=== PATIENT | female | born 1945 | race Hispanic/Latino ===

== ENCOUNTER → 2017-06-07 | Outpatient (CLI) | payer MEDICARE | END | disposition home or self-care (01) | LOC: SHCH 10:17 | PROVIDERS: ATTEND Internal Medicine Cardiovascular Disease | DX: I35.8 Other nonrheumatic aortic valve disorders (principal); I25.2 Old myocardial infarction; I10 Essential (primary) hypertension | CPT/HCPCS: 93306 ==

== ENCOUNTER → 2018-09-29 | Outpatient (CLI) | payer MEDICARE | END | disposition home or self-care (01) | LOC: SHCH 10:53 | PROVIDERS: ATTEND Internal Medicine Cardiovascular Disease | DX: I07.1 Rheumatic tricuspid insufficiency (principal); I27.20 Pulmonary hypertension, unspecified; I31.3 Pericardial effusion (noninflammatory); I25.10 Atherosclerotic heart disease of native coronary artery without angina pectoris | CPT/HCPCS: 93306 ==

== ENCOUNTER → 2018-10-04 | Outpatient (CLI) | payer MEDICARE | END | disposition home or self-care (01) | LOC: SHCH 10:30 | PROVIDERS: ATTEND Internal Medicine Cardiovascular Disease | DX: I65.23 Occlusion and stenosis of bilateral carotid arteries (principal) | CPT/HCPCS: 93880 ==

== ENCOUNTER → 2018-10-06 | Outpatient (CLI) | payer MEDICARE ==
[~2018-10-06] VITALS: Ht 152.4 cm; Wt 73.0 kg
[~2018-10-06] MED LIST: REGADENOSON 0.4 MG/5 ML PF SYG IVP SCH
== END | disposition home or self-care (01) ==
LOC: SHCH 08:16
PROVIDERS: ATTEND Internal Medicine Cardiovascular Disease
DX: I25.10 Atherosclerotic heart disease of native coronary artery without angina pectoris (principal)
CPT/HCPCS: 78452; 93017; 96374; A9500 ×2; J2785

== ENCOUNTER 2018-11-15 08:59 | Day surgery (SDC) | payer MEDICARE ==
[2018-11-14 14:00] VITALS: BP 189/71
[2018-11-14 14:40] LABS: APPEARANCE,URINE Clear (CLEAR); BASOPHILS % (AUTO) 0.3 % (0.0-5.0); BILIRUBIN,URINE Negative (NEGATIVE); COLOR,URINE Dark Yellow (YELLOW); EOSINOPHILS % (AUTO) 2.7 % (0.0-8.0); GLUCOSE, URINE (UA) Negative (NEGATIVE); HEMATOCRIT 35.5 % (36-48); KETONES,URINE Negative (NEGATIVE); LEUKOCYTE ESTERASE ,URINE Small (NEGATIVE); LYMPHOCYTES % (AUTO) 42.2 % (21.0-51.0); MEAN CORPUSCULAR HEMOGLOBIN 30.8 pg (27.0-33.0); MEAN CORPUSCULAR HGB CONC 33.6 g/dL (32.0-36.0); MEAN CORPUSCULAR VOLUME 91.5 fL (79-99); MONOCYTES % (AUTO) 11.3 % (3.0-13.0); NEUTROPHILS % (AUTO) 43.5 % (40.0-77.0); NITRATE,URINE Negative (NEGATIVE); OCCULT BLOOD,URINE Negative (NEGATIVE); PH,URINE 5.5 (5.0-8.0); PLATELET COUNT (AUTO) 165 K/uL (130-400); PROTEIN,URINE Negative (NEGATIVE); RED BLOOD CELL COUNT(AUTO) 3.88 MIL/uL (4.00-5.50); RED CELL DISTRIBUTION WIDTH 13.9 % (11.0-15.5); UROBILINOGEN,URINE 0.2 mg/dL (0.2-1.0); WHITE BLOOD COUNT (AUTO) 4.1 K/uL (4.8-10.8)
[2018-11-14 14:52] LABS: POTASSIUM 4.3 mmol/L (3.5-5.1)
[2018-11-14 14:55] LABS: INR 0.93 (0.85-1.15); PARTIAL THROMBOPLASTIN TIME 26.1 SEC (26.3-35.5); PROTHROMBIN TIME 9.8 SEC (9.6-11.6)
[2018-11-14 15:07] LABS: BACTERIA,URINE Few /HPF (None Seen)
[2018-11-15] VITALS (9 sets, daily range): BP systolic 121–164; BP diastolic 47–64
[~2018-11-15] VITALS: Ht 154.9 cm; Wt 74.1 kg
[~2018-11-15 08:59] MED LIST changes: +ASPI-1181 PO; +CALC600T12 PO; +LEVO88TA4 PO; +LOSA100T58 PO; +MULT-264 PO; -REGADENOSON 0.4 MG/5 ML PF SYG IVP SCH; +SODIUM CHLORIDE 0.9% 1000ML 1,000 ML IV SCH
[2018-11-15] MEDS ORDERED: LOSA1TAB42 PO (09:46)
[2018-11-15] MEDS ORDERED: AMLO10TA7 PO (09:46)
[2018-11-15] MEDS ORDERED: IOHEXOL-350 50ML VIAL IV ONE (12:23)
[2018-11-15] MEDS ORDERED: LIDOCAINE HCL 2% 20ML ONE (12:23)
[2018-11-15] MEDS ORDERED: NITROGLYCERIN 5 MG/ML 10 ML VIAL IV ONE (12:23)
[2018-11-15] MEDS ORDERED: IOHEXOL 350 MG/ML 100ML INFUS..BTL IV ONE (12:23)
[2018-11-15] MEDS ORDERED: HEPARIN SODIUM 1000UNIT/ML 10ML VIAL ONE (12:23)
[2018-11-15] MEDS ORDERED: SODIUM BICARB 50MEQ 50ML VIAL ONE (12:23)
[2018-11-15] MEDS ORDERED: MEPERIDINE-PF 25 MG/ML SYG ONE ×2 (12:45→12:53)
[2018-11-15] MEDS ORDERED: MIDAZOLAM HCL 1 MG/ML 2ML VIAL ONE ×2 (12:45→12:53)
[2018-11-15] MEDS ORDERED: SODIUM CHLORIDE 0.9% 1000ML 1,000 ML IV SCH (13:14)
[2018-11-15] MEDS ORDERED: ACETAMINOPHEN-CODEINE 300/30MG TAB PO PRN (13:15)
--- NOTE | 2018-11-15 13:40 | NUR ---
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
--- NOTE | 2018-11-15 17:11 | NUR ---
dc dc instrucctions given to pt daughter , instructed to f/u with dr omer avendano. to continue home meds, no distress noted. right groin perclose-dressing dry and intact,
--- NOTE | 2018-11-15 17:30 | NUR ---
dc pt dc home via wc, no distress noted. accompanied by daughter
== END 2018-11-15 17:30 | disposition home or self-care (01) ==
LOC: DAH 08:59 → SUH 08:59
PROVIDERS: ATTEND Internal Medicine Cardiovascular Disease
DX: I25.118 Atherosclerotic heart disease of native coronary artery with other forms of angina pectoris (principal); E03.9 Hypothyroidism, unspecified; I10 Essential (primary) hypertension; M32.9 Systemic lupus erythematosus, unspecified; Z79.82 Long term (current) use of aspirin; Z79.899 Other long term (current) drug therapy; Z82.49 Family history of ischemic heart disease and other diseases of the circulatory system; Z83.3 Family history of diabetes mellitus
CPT/HCPCS: 36415; 71045; 80048; 81001; 85025; 85610; 85730; 93005; 93458; A4215; A4216; A4221; A4222; A4223 ×3; A4606; C1760; C1894; J1644; J2175 ×2; J2250 ×2; J3490 ×3; J7030; Q9965; Q9967 ×2; 99156; 99157

== ENCOUNTER → 2020-02-13 | Outpatient (CLI) | payer MEDICARE ==
[~2020-02-13] MED LIST changes: +AMLO-258 PO; -ASPI-1181 PO; +ASPI-1443 PO; -CALC600T12 PO; +CALC600T15 PO; -LOSA100T58 PO; +LOSA1TAB42 PO; -SODIUM CHLORIDE 0.9% 1000ML 1,000 ML IV SCH
== END | disposition home or self-care (01) ==
LOC: SHCH 10:41
PROVIDERS: ATTEND Internal Medicine Cardiovascular Disease
DX: I51.7 Cardiomegaly (principal); R01.1 Cardiac murmur, unspecified
CPT/HCPCS: 93306; 93356

== ENCOUNTER → 2020-02-26 | Outpatient (CLI) | payer OTHER | END | disposition home or self-care (01) | LOC: OIH 14:35 | PROVIDERS: ATTEND Internal Medicine Cardiovascular Disease | DX: Z13.6 Encounter for screening for cardiovascular disorders (principal) | CPT/HCPCS: 75571 ==

== ENCOUNTER 2020-05-22 23:32 | Emergency (ER) | payer MEDICARE, OTHER ==
[~2020-05-22 23:32] MED LIST changes: +CALC-1125 PO; -CALC600T15 PO
[2020-05-22 23:57] LABS: BASOPHILS % (AUTO) 0.1 % (0.0-5.0); EOSINOPHILS % (AUTO) 3.7 % (0.0-8.0); HEMATOCRIT 35.1 % (36-48); LYMPHOCYTES % (AUTO) 22.4 % (21.0-51.0); MEAN CORPUSCULAR HEMOGLOBIN 28.9 pg (27.0-33.0); MEAN CORPUSCULAR HGB CONC 31.3 g/dL (32.0-36.0); MEAN CORPUSCULAR VOLUME 92.4 fL (79-99); MONOCYTES % (AUTO) 9.3 % (3.0-13.0); NEUTROPHILS % (AUTO) 64.2 % (40.0-77.0); PLATELET COUNT (AUTO) 200 K/uL (130-400); RED CELL DISTRIBUTION WIDTH 14.4 % (11.0-15.5); WHITE BLOOD COUNT (AUTO) 9.4 K/uL (4.8-10.8)
[2020-05-22] MEDS ORDERED: METHYLPREDNISOLONE SOD SUCC 40MG/ML 1ML ONE (23:59)
[2020-05-22] MEDS ORDERED: DiphenhydrAMINE HCL 50 MG/ML VIAL ONE (23:59)
[2020-05-22] MEDS ORDERED: FAMOTIDINE/PF 20 MG/2 ML VIAL IV ONE (23:59)
[2020-05-23 00:02] LABS: CREATININE 1.1 mg/dL (0.5-1.5); POTASSIUM 4.5 mmol/L (3.5-5.1)
[2020-05-23 00:07] LABS: ALBUMIN 3.6 g/dL (3.5-5.0); BILIRUBIN,TOTAL 0.3 mg/dL (0.2-1.0)
== END 2020-05-23 01:41 | disposition home or self-care (01) ==
LOC: EDH 23:32
DX: T63.441A Toxic effect of venom of bees, accidental (unintentional), initial encounter (principal); I10 Essential (primary) hypertension; R60.0 Localized edema; Y92.098 Other place in other non-institutional residence as the place of occurrence of the external cause
CPT/HCPCS: 36415; 80053; 84145; 85025; 93971; 96374; 96375; 99284; J1200; J2920; J3490

== ENCOUNTER → 2022-06-30 | Outpatient (CLI) | payer MEDICARE | END | disposition home or self-care (01) | LOC: SHCH 08:59 | PROVIDERS: ATTEND Internal Medicine Cardiovascular Disease | DX: I08.0 Rheumatic disorders of both mitral and aortic valves (principal); I10 Essential (primary) hypertension; E78.5 Hyperlipidemia, unspecified; I27.20 Pulmonary hypertension, unspecified | CPT/HCPCS: 93306 ==

== ENCOUNTER → 2022-07-14 | Outpatient (CLI) | payer OTHER | END | disposition home or self-care (01) | LOC: RAH 13:24 | PROVIDERS: ATTEND Internal Medicine Cardiovascular Disease | DX: Z13.6 Encounter for screening for cardiovascular disorders (principal); I51.5 Myocardial degeneration | CPT/HCPCS: 75571 ==

== ENCOUNTER → 2023-07-19 | Outpatient (CLI) | payer MEDICARE ==
[2023-07-19] MEDS: REGADENOSON 0.4 MG/5 ML PF SYG IVP ONE (12:04)
== END | disposition home or self-care (01) ==
LOC: SHCH 09:04
PROVIDERS: ATTEND Internal Medicine Cardiovascular Disease
DX: R07.9 Chest pain, unspecified (principal)
CPT/HCPCS: 78452; 96374; 93017; J2785; A9500 ×2

== ENCOUNTER → 2023-07-26 | Outpatient (CLI) | payer MEDICARE ==
[2023-07-26 16:27] LABS: CREATININE 1.1 mg/dL (0.5-1.0); POTASSIUM 4.8 mmol/L (3.5-5.1)
== END | disposition home or self-care (01) ==
LOC: LAB 13:10
PROVIDERS: ATTEND Physician Assistant
DX: I25.10 Atherosclerotic heart disease of native coronary artery without angina pectoris (principal)
CPT/HCPCS: 36415; 80048

== ENCOUNTER → 2023-07-29 | Outpatient (CLI) | payer MEDICARE, BC ==
[~2023-07-29] MED LIST changes: +IOHEXOL 350 MG/ML 100ML INFUS..BTL IV ONE; +METOPROLOL TARTRATE 1 MG/ML 5ML VIAL IV ONE
== END | disposition home or self-care (01) ==
LOC: RAH 08:09
PROVIDERS: ATTEND Internal Medicine Cardiovascular Disease
DX: R07.9 Chest pain, unspecified (principal)
CPT/HCPCS: 75574; J3490 ×2; Q9967

== ENCOUNTER 2023-09-21 07:07 | Day surgery (SDC) | payer MEDICARE ==
[2023-09-19 10:34] LABS: BASOPHILS # (AUTO) 0.01 K/uL (0.00-0.20); BASOPHILS % (AUTO) 0.2 % (0.0-5.0); EOSINOPHILS % (AUTO) 3.7 % (0.0-8.0); HEMATOCRIT 37.2 % (36-48); IMMATURE GRANULOCYTE ABSOLUTE 0.02 K/uL (0-1); LYMPHOCYTES # (AUTO) 2.1 K/uL (1.0-4.8); LYMPHOCYTES % (AUTO) 39.3 % (21.0-51.0); MEAN CORPUSCULAR HEMOGLOBIN 29.8 pg (27.0-33.0); MEAN CORPUSCULAR HGB CONC 31.2 g/dL (32.0-36.0); MEAN CORPUSCULAR VOLUME 95.6 fL (79-99); MONOCYTES # (AUTO) 0.6 K/uL (0.1-1.0); MONOCYTES % (AUTO) 11.1 % (3.0-13.0); NEUTROPHILS # (AUTO) 2.5 K/uL (1.8-7.7); NEUTROPHILS % (AUTO) 45.3 % (40.0-77.0); PLATELET COUNT (AUTO) 199 K/uL (130-400); RED BLOOD CELL COUNT(AUTO) 3.89 MIL/uL (4.00-5.50); RED CELL DISTRIBUTION WIDTH 14.5 % (11.0-15.5); WHITE BLOOD COUNT (AUTO) 5.4 K/uL (4.8-10.8)
[2023-09-19 10:39] LABS: APPEARANCE,URINE CLEAR (CLEAR); BILIRUBIN,URINE NEGATIVE (NEGATIVE); COLOR,URINE LIGHT-YELLOW (YELLOW); GLUCOSE, URINE (UA) NEGATIVE (NEGATIVE); KETONES,URINE NEGATIVE (NEGATIVE); LEUKOCYTE ESTERASE ,URINE NEGATIVE Leu/uL (NEGATIVE); NITRATE,URINE NEGATIVE (NEGATIVE); OCCULT BLOOD,URINE NEGATIVE (NEGATIVE); PROTEIN,URINE NEGATIVE (NEGATIVE); UROBILINOGEN,URINE 0.2 mg/dL (0.2-1.0)
[2023-09-19 10:41] LABS: POTASSIUM 5.7 mmol/L (3.5-5.1)
[2023-09-19 10:42] LABS: ADD UA MICROSCOPIC NO
[2023-09-19 10:45] LABS: INR 1.01 (0.85-1.15); PROTHROMBIN TIME 10.9 SEC (9.6-11.6)
[2023-09-19 10:46] LABS: PARTIAL THROMBOPLASTIN TIME 26.8 SEC (26.3-35.5)
[2023-09-19 11:05] LABS: B-TYPE NATRIURETIC PEPTIDE 155 pg/mL (0-100)
[2023-09-19 11:10] VITALS: BP 132/66; PULSE 58; RESP 17
[2023-09-21] VITALS (11 sets, daily range): BP systolic 128–179; BP diastolic 45–80; PULSE 61–76; RESP 14–19
[~2023-09-21] VITALS: Ht 152.4 cm; Wt 67.1 kg
[~2023-09-21 07:07] MED LIST changes: -AMLO-258 PO; +ASPI-1197 PO; -ASPI-1443 PO; +ATOR10 PO; -CALC-1125 PO; +CLON0.1T PO; +ERGO500093 PO; -IOHEXOL 350 MG/ML 100ML INFUS..BTL IV ONE; +LEVO88CA4 PO; -LEVO88TA4 PO; -LOSA1TAB42 PO; -METOPROLOL TARTRATE 1 MG/ML 5ML VIAL IV ONE; -MULT-264 PO; +TRAM-530 PO; +VALS160T29 PO
[2023-09-21] MEDS: 0.9%NACL 1000ML 1,000 ML IV ONE (08:14)
[2023-09-21] MEDS ORDERED: IOHEXOL-350 75 ML VIAL IV ONE (08:17)
[2023-09-21] MEDS ORDERED: HEPARIN 10,000 UNIT/10ML (1,000 UNIT/ML) VIAL ONE (08:17)
[2023-09-21] MEDS ORDERED: SODIUM BICARB 50MEQ 50ML VIAL 50 ML ONE (08:17)
[2023-09-21] MEDS ORDERED: LIDOCAINE HCL 400MG/20ML VIAL ONE (08:17)
[2023-09-21] MEDS ORDERED: NICARDIPINE 25MG INJ IV ONE ×2 (08:17→10:02)
[2023-09-21] MEDS ORDERED: NITROGLYCERIN 50MG VIAL ONE (08:18)
[2023-09-21] MEDS ORDERED: MIDAZOLAM HCL 1 MG/ML 2ML VIAL ONE (08:37)
[2023-09-21] MEDS ORDERED: MEPERIDINE-PF 25 MG/ML SYG ONE (08:37)
[2023-09-21] MEDS ORDERED: 0.9%NACL 1000ML 1,000 ML IV SCH (10:00)
[2023-09-21] MEDS: HYDRALAZINE 20MG/ML VIAL IV PRN (12:39)
== END 2023-09-21 15:15 | disposition home or self-care (01) ==
LOC: DAH 07:07
PROVIDERS: ATTEND Internal Medicine Cardiovascular Disease
DX: I25.118 Atherosclerotic heart disease of native coronary artery with other forms of angina pectoris (principal); I10 Essential (primary) hypertension; E03.9 Hypothyroidism, unspecified; Z79.01 Long term (current) use of anticoagulants; Z79.899 Other long term (current) drug therapy
CPT/HCPCS: 80048; 83880; 85025; 85610; 85730; 81003; 36415 ×2; 71045; 93005; 93458; 92978; 92979; 84132; 85347; C1769; C1887; C1894; C1760; C1753; J3490 ×4; J7030; J0360; J1644 ×2; J2250; J2175; Q9967; A4215; A4221; A4663; A4216; A4606; A4223 ×3; 99156; 99157

== ENCOUNTER 2024-04-01 18:10 | Emergency (ER) | payer MEDICARE ==
[~2024-04-01] VITALS: Ht 154.9 cm; Wt 68.0 kg
[~2024-04-01 18:10] MED LIST changes: -TRAM-530 PO; +TRAM-543 PO
[2024-04-01 18:11] VITALS: BP 184/76; PULSE 73; RESP 16; TEMP 98.3
--- NOTE | 2024-04-01 18:53 | HMCIMG ---
CHEST 1VW REASON: SOB COMPARISON: 09/19/2023 FINDINGS: There is moderate cardiac megaly which appears increased since prior study. There is no pulmonary vascular congestion. Lungs are clear. Mediastinum and bony thorax appear unremarkable. IMPRESSION: 1. Moderate cardiomegaly, increased since prior exam, no acute finding.
--- NOTE | 2024-04-01 20:28 | HMCIMG ---
CT CHEST W/O CONTRAST REASON: R flank pain COMPARISON: 11/24/2015 TECHNIQUE: Multiple sequential axial images of the chest were obtained from the thoracic inlet through the upper pole of the kidneys without intravenous contrast administration. FINDINGS: There is mild bibasilar atelectasis. Lungs are otherwise clear. There are no confluent focal infiltrates. There is mild cardiomegaly without pulmonary vascular congestion. There is no hilar or mediastinal lymphadenopathy. Chest wall structures appear normal. Visualized upper abdominal structures are unremarkable. IMPRESSION: 1. Mild bibasilar atelectasis more pronounced on the left. 2. Mild cardiomegaly without pulmonary vascular congestion. CT was performed with one or more following dose reduction techniques: automated exposure control, adjustment of the mA and kv according to patient's size, or use of a iterative reconstruction technique.
--- NOTE | 2024-04-01 20:58 | EKG ---
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1945 Requested By: CINTIA VALERIO Order Number: [id number] Reading MD: Jeannette Marcano Measurements Intervals [place] Rate: 78 P: 70 [place]: 148 QRS: -55 QRSD: 134 T: 122 QT: 421 QTc: 479 Interpretive Statements Sinus rhythm Probable left atrial enlargement Left bundle branch block Compared to ECG 09/19/2023 10:16:38 Left bundle-branch block now present Second-degree AV block, Mobitz type I (Wenckebach) no longer present Intraventricular conduction delay no longer present Left ventricular hypertrophy no longer present Early repolarization no longer present Electronically Signed On 04-02-2024 09:17:16 FINAL ARMATURE TESTER by Jeannette Marcano Please click the below link to view image of tracing.
[2024-04-01 21:08] LABS: BASOPHILS # (AUTO) 0.02 K/uL (0.00-0.20); BASOPHILS % (AUTO) 0.3 % (0.0-5.0); EOSINOPHILS # (AUTO) 0.05 K/uL (0.00-0.70); EOSINOPHILS % (AUTO) 0.6 % (0.0-8.0); HEMATOCRIT 33.6 % (36-48); IMMATURE GRANULOCYTE ABSOLUTE 0.03 K/uL (0-1); LYMPHOCYTES # (AUTO) 1.5 K/uL (1.0-4.8); LYMPHOCYTES % (AUTO) 18.9 % (21.0-51.0); MEAN CORPUSCULAR HEMOGLOBIN 30.1 pg (27.0-33.0); MEAN CORPUSCULAR HGB CONC 32.1 g/dL (32.0-36.0); MEAN CORPUSCULAR VOLUME 93.6 fL (79-99); MONOCYTES # (AUTO) 0.8 K/uL (0.1-1.0); MONOCYTES % (AUTO) 9.9 % (3.0-13.0); NEUTROPHILS # (AUTO) 5.5 K/uL (1.8-7.7); NEUTROPHILS % (AUTO) 69.9 % (40.0-77.0); PLATELET COUNT (AUTO) 295 K/uL (130-400); RED BLOOD CELL COUNT(AUTO) 3.59 MIL/uL (4.00-5.50); RED CELL DISTRIBUTION WIDTH 13.9 % (11.0-15.5); WHITE BLOOD COUNT (AUTO) 7.8 K/uL (4.8-10.8)
[2024-04-01 21:16] LABS: CREATININE 1.1 mg/dL (0.5-1.0); POTASSIUM 4.5 mmol/L (3.5-5.1)
[2024-04-01 21:50] LABS: RAPID GROUP A STREP negative (NEGATIVE)
[2024-04-01 21:55] LABS: SARS-CoV-2, RNA, NAAT NEGATIVE SARS CoV-2 (NEGATIVE)
[2024-04-01 22:00] LABS: INFLUENZA TYPE A Negative For Type A (NEGATIVE); INFLUENZA TYPE B Negative For Type B (NEGATIVE)
[2024-04-01] MEDS: furoSEMIDE 20MG VIAL IV ONE (22:35)
[2024-04-01] MEDS ORDERED: FURO40TA7 PO (22:46)
--- NOTE | 2024-04-01 22:46 | ERN ---
General Chief Complaint: Shortness of Breath Stated Complaint: COUGH, CONGESTION., SOB Time Seen by MD: 19:11 History of Present Illness Initial Comments 78-year-old female presents for cough, paroxysmal nocturnal dyspnea, inability to lie flat for the last 2-3 weeks. Has been increasing in severity. Patient does report she has a history of cardiac disease. She is unsure if she takes a diuretic. She denies any leg swelling. Denies any fevers sore throat or productive cough or phlegm production. Allergies: Coded Allergies: No Known Drug Allergies (Unverified Allergy, 02/09/12) Home Meds Active Scripts Furosemide (Lasix 40Mg Tab) 40 Mg Tablet, 1 TAB PO BID for 7 Days, #14 TAB 0 Refills Prov:LANCELANEY Cherelle TRUJILLO 04/01/24 Reported Medications Ergocalciferol (Vitamin D2) (Vitamin D2) 1,250 Mcg (94659 Unit) Capsule, 1250 MCG PO QWEEK, CAP 09/19/23 Clonidine HCl (Clonidine HCl) 0.1 Mg Tablet, 0.1 MG PO AD PRN for IF SBP GREATER THAN 160, TAB 09/19/23 Tramadol HCl/Acetaminophen (Tramadol-Acetaminophn 37.5-325) 37.5 Mg-325 Mg Tablet, 1 EACH PO AD PRN for PAIN, TAB 09/19/23 Aspirin (Aspirin) 81 Mg Tab.chew, 81 MG PO DAILY, TAB.CHEW 09/19/23 Levothyroxine Sodium (Levothyroxine) 88 Mcg Capsule, 88 MCG PO DAILY, CAP 09/19/23 Atorvastatin Calcium (LIPITOR) 20 Mg Tab, 20 MG PO HS, TAB 09/19/23 Valsartan (Valsartan) 160 Mg Tablet, 160 MG PO BID, TAB 09/19/23 Past Medical History Past Medical History: Hypertension, Hypothyroid Medical History Other: LUPUS Past Surgical History: Other Surgical History Other: KNEE Results Laboratory and Microbiology Lab and Micro Result Laboratory Tests Test 04/01/24 21:00 04/01/24 21:34 White Blood Count 7.8 K/uL (4.8-10.8) Red Blood Count 3.59 MIL/uL (4.00-5.50) L Hemoglobin 10.8 g/dL (12.0-16.0) L Hematocrit 33.6 % (36-48) L Mean Corpuscular Volume 93.6 fL (79-99) Mean Corpuscular Hemoglobin 30.1 pg (27.0-33.0) Mean Corpuscular Hemoglobin Concent 32.1 g/dL (32.0-36.0) Red Cell Distribution Width 13.9 % (11.0-15.5) Platelet Count 295 K/uL (130-400) Mean Platelet Volume 9.9 fL (7.5-10.5) Immature Granulocyte % (Auto) 0.4 % (0-1) Neutrophils (%) (Auto) 69.9 % (40.0-77.0) Lymphocytes (%) (Auto) 18.9 % (21.0-51.0) L Monocytes (%) (Auto) 9.9 % (3.0-13.0) Eosinophils (%) (Auto) 0.6 % (0.0-8.0) Basophils (%) (Auto) 0.3 % (0.0-5.0) Neutrophils # (Auto) 5.5 K/uL (1.8-7.7) Lymphocytes # (Auto) 1.5 K/uL (1.0-4.8) Monocytes # (Auto) 0.8 K/uL (0.1-1.0) Eosinophils # (Auto) 0.05 K/uL (0.00-0.70) Basophils # (Auto) 0.02 K/uL (0.00-0.20) Absolute Immature Granulocyte (auto 0.03 K/uL (0-1) Nucleated Red Blood Cells 0.0 % (0.0-0.19) Sodium Level 140 mmol/L (136-145) Potassium Level 4.5 mmol/L (3.5-5.1) Chloride Level 105 mmol/L (101-111) Carbon Dioxide Level 27 mmol/L (21-32) Blood Urea Nitrogen 20 mg/dL (7-18) H Creatinine 1.1 mg/dL (0.5-1.0) H Glomerular Filtration Rate Calc 51 mL/min (>90) Random Glucose 106 mg/dL (70-105) H Total Calcium 8.8 mg/dL (8.5-10.1) Total Creatine Kinase 141 U/L (21-232) # Troponin I High Sensitivity 51.0 ng/L (4-50) H B-Type Natriuretic Peptide 251 pg/mL (0-100) H Influenza Type A Antigen Negative For Type A Influenza Type B Antigen Negative For Type B SARS-CoV-2, RNA, NAAT NEGATIVE SARS CoV-2 Group A Streptococcus Rapid negative (NEGATIVE) MDM CC: Cough, P ND times 2-3 weeks Historian: Patient Comorbidities: Advanced age, hypertension, hypothyroidism, CAD Limitations by social determinants of health: None Differential diagnosis: CHF, pulmonary edema, flu, pneumonia, ACS, other. Vital signs: Hypertensive 184/76 otherwise unremarkable. Clinically patient is mildly fluid overloaded. 1+ pitting edema of the legs, some mild crackles EKG: Sinus rhythm, left bundle-branch block morphology, left axis deviation, delayed R-wave progression, Sgarbossa criteria negative no STEMI. Independently interpreted by me. CBC shows normocytic anemia otherwise unremarkable. Metabolic panel stable. Troponin 51. BNP elevated to 51. Flu and SARS are negative. CXR per my independent interpretation shows some mild vascular congestion, there is no obvious focal infiltrates. CT chest shows cardiomegaly no focal infiltrates per my independent interpretation. I did offer the patient admission for diuresis, with the patient reports that her son has a major operation tomorrow morning. She does not want to stay here. We agreed on a plan of a dose of IV diuretic here in the ER and diuresis orally for the next few days. Patient is going to take a daily weight, complete all medications, limit her intake of fluids, and follow up with the primary doctor as an outpatient. She will return to the emergency department as needed. REASON: SOB ORDERING PHYSICIAN: CINTIA VALERIO MD PROCEDURE: CXR1VW - CHEST 1VW CHEST 1VW REASON: SOB COMPARISON: 09/19/2023 FINDINGS: There is moderate cardiac megaly which appears increased since prior study. There is no pulmonary vascular congestion. Lungs are clear. Mediastinum and bony thorax appear unremarkable. IMPRESSION: 1. Moderate cardiomegaly, increased since prior exam, no acute finding. REASON: R flank pain ORDERING PHYSICIAN: LANEY LUCAS DO PROCEDURE: CHEST WO - CT CHEST W/O CONTRAST CT CHEST W/O CONTRAST REASON: R flank pain COMPARISON: 11/24/2015 TECHNIQUE: Multiple sequential axial images of the chest were obtained from the thoracic inlet through the upper pole of the kidneys without intravenous contrast administration. FINDINGS: There is mild bibasilar atelectasis. Lungs are otherwise clear. There are no confluent focal infiltrates. There is mild cardiomegaly without pulmonary vascular congestion. There is no hilar or mediastinal lymphadenopathy. Chest wall structures appear normal. Visualized upper abdominal structures are unremarkable. IMPRESSION: 1. Mild bibasilar atelectasis more pronounced on the left. 2. Mild cardiomegaly without pulmonary vascular congestion. ED Course Orders Procedure Category Date Status Time Chest 1vw RAD 04/01/24 Resulted 18:15 12 Lead Ekg Tracing- EKG 04/01/24 Complete Technical 18:15 Covid Rna Naat LAB 04/01/24 Complete 18:15 Influenza Type A & B, LAB 04/01/24 Complete Rapid 18:15 Rapid (Group A Strep) LAB 04/01/24 Complete 18:15 Cardiac Panel LAB 04/01/24 Complete 19:13 Cbc With Differential LAB 04/01/24 Complete 19:13 Basic Metabolic Panel LAB 04/01/24 Complete 19:13 B-Type Natriuretic LAB 04/01/24 Complete Peptide 19:31 Ct Chest W/O Contrast CT 04/01/24 Resulted 20:02 Furosemide 20mg Vial PHA 04/01/24 Complete (Lasix 20mg Vial) 22:30 Current Medications Medications (Trade) Dose Ordered Sig/Mariana Route PRN Reason Start Time Stop Time Status Last Admin Dose Admin Furosemide (LASix 20MG VIAL) 60 mg ONCE ONCE IV 04/01/24 22:30 04/01/24 22:31 DC 04/01/24 22:35 Vital Signs Date Time Temp Pulse Resp B/P (MAP) Pulse Ox O2 Delivery O2 Flow Rate FiO2 04/01/24 18:11 98.2 73 16 184/76 97 Room Air 0 DX & DISP Disposition: Discharge Departure Impression: Primary Impression: Pulmonary edema Condition: Stable Scripts Furosemide (Lasix 40Mg Tab) 40 Mg Tablet 1 TAB PO BID for 7 Days, #14 TAB 0 Refills Prov: LANEY LUCAS DO 04/01/24 Additional Instructions: You have fluid on the lungs or pulmonary edema. This is likely causing your symptoms. Your blood pressure was elevated here in the ER. Be sure to take your blood pressure medications. The chest x-ray and CT scan of your chest or consistent with fluid overload on the lungs. Your lab work shows a mild anemia (hemoglobin 10.8). This is unlikely to cause her symptoms. Your BMP is normal. Your troponin is normal. Your BNP is elevated (251) consistent with fluid overload. You received a dose of IV furosemide here in the ER. I have also prescribed oral furosemide. Take as prescribed for the next five days. As we discussed, I recommend that you take a daily body weight and write it down to discuss with your primary doctor. Please continue with all of your other home medications. Please follow up with your primary doctor in the next 5-7 days. Please refer to the emergency department as needed. Referrals: REMY FISHER MD (PCP) LANEY LUCAS DO Apr 01, 2024 22:46
== END 2024-04-01 22:58 | disposition home or self-care (01) ==
LOC: EDH 18:10
DX: J81.1 Chronic pulmonary edema (principal); E03.9 Hypothyroidism, unspecified; Z79.82 Long term (current) use of aspirin; Z79.890 Hormone replacement therapy; Z79.899 Other long term (current) drug therapy; Z20.822 Contact with and (suspected) exposure to COVID-19
CPT/HCPCS: 99285; 96374; 71250; 71045; 87635; 82550; 84484; 80048; 83880; 85025; 87880; 87804 ×2; 36415; 93005; J1940

== ENCOUNTER 2024-04-05 11:36 | Inpatient (IN) | payer MEDICARE ==
[~2024-04-05] VITALS: Ht 157.5 cm; Wt 65.0 kg
[~2024-04-05 11:36] MED LIST changes: +FURO40TA7 PO
[2024-04-05 12:52] LABS: ALBUMIN 3.2 g/dL (3.5-5.0); CREATININE 1.3 mg/dL (0.5-1.0)
[2024-04-05 12:53] LABS: BASOPHILS # (AUTO) 0.03 K/uL (0.00-0.20); BASOPHILS % (AUTO) 0.6 % (0.0-5.0); EOSINOPHILS # (AUTO) 0.04 K/uL (0.00-0.70); EOSINOPHILS % (AUTO) 0.8 % (0.0-8.0); HEMATOCRIT 32.2 % (36-48); IMMATURE GRANULOCYTE ABSOLUTE 0.02 K/uL (0-1); LYMPHOCYTES # (AUTO) 1.2 K/uL (1.0-4.8); LYMPHOCYTES % (AUTO) 24.3 % (21.0-51.0); MEAN CORPUSCULAR HEMOGLOBIN 29.6 pg (27.0-33.0); MEAN CORPUSCULAR HGB CONC 33.5 g/dL (32.0-36.0); MEAN CORPUSCULAR VOLUME 88.2 fL (79-99); MONOCYTES # (AUTO) 0.7 K/uL (0.1-1.0); NEUTROPHILS % (AUTO) 59.9 % (40.0-77.0); PLATELET COUNT (AUTO) 293 K/uL (130-400); RED BLOOD CELL COUNT(AUTO) 3.65 MIL/uL (4.00-5.50); RED CELL DISTRIBUTION WIDTH 13.4 % (11.0-15.5); WHITE BLOOD COUNT (AUTO) 5.1 K/uL (4.8-10.8)
[2024-04-05 12:56] LABS: BILIRUBIN,DIRECT 0.2 mg/dL (0.0-0.3); BILIRUBIN,TOTAL 0.6 mg/dL (0.2-1.0); TOTAL PROTEIN, SERUM 7.8 g/dL (6.0-8.3)
[2024-04-05 13:06] LABS: INR 1.04 (0.85-1.15); PROTHROMBIN TIME 11.6 SEC (9.6-11.6); SARS-CoV-2, RNA, NAAT NEGATIVE SARS CoV-2 (NEGATIVE)
[2024-04-05 13:07] LABS: PARTIAL THROMBOPLASTIN TIME 29.9 SEC (26.3-35.5)
[2024-04-05 13:12] LABS: INFLUENZA TYPE A Negative For Type A (NEGATIVE); INFLUENZA TYPE B Negative For Type B (NEGATIVE)
--- NOTE | 2024-04-05 13:49 | EKG ---
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1945 Requested By: JEAN SALINAS Order Number: [id number] Reading MD: Hayden Ku Measurements Intervals [place] Rate: 77 P: 41 [place]: 166 QRS: -52 QRSD: 143 T: 126 QT: 441 QTc: 515 Interpretive Statements Sinus rhythm Atrial premature complex Probable left atrial enlargement LVH with IVCD, LAD and secondary repol abnrm Compared to ECG 04/01/2024 18:43:30 Atrial premature complex(es) now present Intraventricular conduction delay now present Left ventricular hypertrophy now present Early repolarization now present Left bundle-branch block no longer present Electronically Signed On 04-05-2024 16:20:30 OPERATING ROOM AIDE by Hayden Ku Please click the below link to view image of tracing.
[2024-04-05 13:51] LABS: APPEARANCE,URINE CLEAR (CLEAR); BILIRUBIN,URINE NEGATIVE (NEGATIVE); COLOR,URINE LIGHT-YELLOW (YELLOW); GLUCOSE, URINE (UA) NEGATIVE (NEGATIVE); KETONES,URINE NEGATIVE (NEGATIVE); LEUKOCYTE ESTERASE ,URINE 25 Leu/uL (NEGATIVE); MUCUS,URINE RARE LPF (None Seen); NITRATE,URINE NEGATIVE (NEGATIVE); OCCULT BLOOD,URINE NEGATIVE (NEGATIVE); PH,URINE 5.5 (5.0-8.0); PROTEIN,URINE NEGATIVE (NEGATIVE); RBC,URINE 0-1 /HPF (0-1); SQUAMOUS EPITHELIAL CELL,UR RARE /HPF (0-2); UROBILINOGEN,URINE 0.2 mg/dL (0.2-1.0); WBC,URINE 0-1 /HPF (0-1)
--- NOTE | 2024-04-05 13:56 | ERN ---
General Chief Complaint: Weakness Stated Complaint: WEAKNESS,DIZZY Time Seen by MD: 11:42 History of Present Illness Initial Comments 78-year-old female came in for generalized body weakness. Patient states that she feels like passing out. Patient has been on Lasix which has been a new medications started a week ago. Patient otherwise has no concerns. Allergies: Coded Allergies: No Known Drug Allergies (Unverified Allergy, 02/09/12) Home Meds Active Scripts Furosemide (Lasix 40Mg Tab) 40 Mg Tablet, 1 TAB PO BID for 7 Days, #14 TAB 0 Refills Prov:LANEY LUCAS DO 04/01/24 Reported Medications Ergocalciferol (Vitamin D2) (Vitamin D2) 1,250 Mcg (66644 Unit) Capsule, 1250 MCG PO QWEEK, CAP 09/19/23 Clonidine HCl (Clonidine HCl) 0.1 Mg Tablet, 0.1 MG PO AD PRN for IF SBP GREATER THAN 160, TAB 09/19/23 Tramadol HCl/Acetaminophen (Tramadol-Acetaminophn 37.5-325) 37.5 Mg-325 Mg Tablet, 1 EACH PO AD PRN for PAIN, TAB 09/19/23 Aspirin (Aspirin) 81 Mg Tab.chew, 81 MG PO DAILY, TAB.CHEW 09/19/23 Levothyroxine Sodium (Levothyroxine) 88 Mcg Capsule, 88 MCG PO DAILY, CAP 09/19/23 Atorvastatin Calcium (LIPITOR) 20 Mg Tab, 20 MG PO HS, TAB 09/19/23 Valsartan (Valsartan) 160 Mg Tablet, 160 MG PO BID, TAB 09/19/23 Past Medical History Past Medical History: Hypertension, Hypothyroid Medical History Other: LUPUS Past Surgical History: Other Surgical History Other: KNEE ROS Dictation CONSTITUTIONAL: Negative except for HPI HEAD/FACE: Negative except for HPI EENT: Negative except for HPI RESPIRATORY: Negative except for HPI GASTROINTESTINAL/ABDOMINAL: Negative except for HPI GENITOURINARY: Negative except for HPI MUSCULOSKELETAL: Negative except for HPI INTEGUMENTARY: Negative except for HPI NEUROLOGICAL/PSYCH: Negative except for HPI HEMATOLOGIC/LYMPHATIC: Negative except for HPI All Systems Negative, Except as noted above. 13 point review of systems assessed and all negative except for above. Physical Exam Physical Exam Dictation Vital Signs reviewed General Appearance: Alert, oriented x 3, no acute distress, well developed, nourished. Head and Face: non-traumatic. Eyes: PERRL, pink conjunctivas, eyelid no trauma, anterior chamber with arcus senilis. Ears: Pinnas intact and no signs of trauma or erythema ear canals clear and no discharge TM no erythema Nose: No discharge, no bleeding. Oropharynx: Mouth normal, tongue pink, pharynx clear,no erythema, tonsils no exudates, no abscesses noted, mucous membrane moist Neck: Supple, non-tender, no thyromegaly, no masses, no JVD, no bruits Breast:Deferred Chest:No tenderness, no crepitus, no paradoxical movement, no retractions Lungs:Clear, well-ventilated, symmetric, no rales, no wheezing, no rhonchi, no stridor, good breath sounds bilaterally Heart: Regular rate, regular rhythm, no murmur, no gallops Vascular: no peripheral edema, Abdomen: Soft, positive bowel sounds, nondistended, no guarding, nontender, no rebound, no masses no hepatomegaly, no splenomegaly, no George's sign, no hernias. Rectal: Deferred Genital: Deferred Neurological: Normal speech, motor function intact, sensory function intact Musculoskeletal: Neck nontender, full range of motion, back nontender, full range of motion, Extremities: nontender, full range of motion Skin: Color pink, dry, no turgor, no rash, no lacerations, no abrasions, no contusions. Lymphatic: Deferred Results Laboratory and Microbiology Lab and Micro Result Laboratory Tests Test 04/05/24 12:18 White Blood Count 5.1 K/uL (4.8-10.8) Red Blood Count 3.65 MIL/uL (4.00-5.50) L Hemoglobin 10.8 g/dL (12.0-16.0) L Hematocrit 32.2 % (36-48) L Mean Corpuscular Volume 88.2 fL (79-99) Mean Corpuscular Hemoglobin 29.6 pg (27.0-33.0) Mean Corpuscular Hemoglobin Concent 33.5 g/dL (32.0-36.0) Red Cell Distribution Width 13.4 % (11.0-15.5) Platelet Count 293 K/uL (130-400) Mean Platelet Volume 10.5 fL (7.5-10.5) Immature Granulocyte % (Auto) 0.4 % (0-1) Neutrophils (%) (Auto) 59.9 % (40.0-77.0) Lymphocytes (%) (Auto) 24.3 % (21.0-51.0) Monocytes (%) (Auto) 14.0 % (3.0-13.0) H Eosinophils (%) (Auto) 0.8 % (0.0-8.0) Basophils (%) (Auto) 0.6 % (0.0-5.0) Neutrophils # (Auto) 3.0 K/uL (1.8-7.7) Lymphocytes # (Auto) 1.2 K/uL (1.0-4.8) Monocytes # (Auto) 0.7 K/uL (0.1-1.0) Eosinophils # (Auto) 0.04 K/uL (0.00-0.70) Basophils # (Auto) 0.03 K/uL (0.00-0.20) Absolute Immature Granulocyte (auto 0.02 K/uL (0-1) Nucleated Red Blood Cells 0.0 % (0.0-0.19) Prothrombin Time 11.6 SEC (9.6-11.6) Prothromb Time International Ratio 1.04 (0.85-1.15) Activated Partial Thromboplast Time 29.9 SEC (26.3-35.5) Sodium Level 125 mmol/L (136-145) L Potassium Level 4.0 mmol/L (3.5-5.1) Chloride Level 90 mmol/L (101-111) *L Carbon Dioxide Level 29 mmol/L (21-32) Blood Urea Nitrogen 25 mg/dL (7-18) H Creatinine 1.3 mg/dL (0.5-1.0) H Glomerular Filtration Rate Calc 42 mL/min (>90) Random Glucose 126 mg/dL (70-105) H Lactic Acid Level 1.9 mmol/L (0.8-2.5) Total Calcium 8.0 mg/dL (8.5-10.1) L Total Bilirubin 0.6 mg/dL (0.2-1.0) Direct Bilirubin 0.2 mg/dL (0.0-0.3) Aspartate Amino Transf (AST/SGOT) 53 U/L (10-37) H Alanine Aminotransferase (ALT/SGPT) 62 U/L (12-78) Alkaline Phosphatase 107 U/L (50-136) Troponin I High Sensitivity 36 ng/L (4-50) Total Protein 7.8 g/dL (6.0-8.3) Albumin 3.2 g/dL (3.5-5.0) L Procalcitonin < 0.05 ng/mL (0.05-0.5) L Influenza Type A Antigen Negative For Type A Influenza Type B Antigen Negative For Type B SARS-CoV-2, RNA, NAAT NEGATIVE SARS CoV-2 MDM MDM: Differential diagnosis: Rationale: Tests considered and ordered secondary to shared decision making include: Previous outside records reviewed: Old ER visits. Risk of complication and/or morbidity or mortality of patient management: None Medications-Per medication reconciliation Need for hospitalization: Patient does meet criteria for hospitalization. Need for emergency major/minor surgery: No There are no social concerns with this patient. Prescription drug management Prescriptions will include symptomatic care Patient's prior external medical records from other ER visits were reviewed by me as indicated. Prior testing and results from previous visits were reviewed. Prior tests were taken into account with medical decision making and resource utilization, independent historian/historians were used to obtain complete medical history. I independently interpreted the test that were performed, results were reviewed by me and considered findings on radiology if ordered. Medical management and examination interpretation discussions were had by me with other qualified healthcare professionals as indicated for the patient's care. ED Course Orders Procedure Category Date Status Time 12 Lead Ekg Tracing- EKG 04/05/24 Complete Technical 11:49 Cbc With Differential LAB 04/05/24 Complete 11:49 Basic Metabolic Panel LAB 04/05/24 Complete 11:49 Covid Rna Naat LAB 04/05/24 Complete 11:49 Hepatic Function Panel LAB 04/05/24 Complete 11:49 Influenza Type A & B, LAB 04/05/24 Complete Rapid 11:49 Lactic Acid LAB 04/05/24 Complete 11:49 Procalcitonin LAB 04/05/24 Complete 11:49 Pt And Ptt LAB 04/05/24 Complete 11:49 Troponin I High LAB 04/05/24 Complete Sensitivity 11:49 Urinalysis LAB 04/05/24 In Process W/Microscopic 11:49 Chest 1vw RAD 04/05/24 Taken 11:49 Vital Signs Date Time Temp Pulse Resp B/P (MAP) Pulse Ox O2 Delivery O2 Flow Rate FiO2 04/05/24 13:31 98.6 65 18 155/54 97 Room Air* 0 21 04/05/24 12:09 98.6 63 18 143/57 98 Room Air* 0 21 04/05/24 11:48 98.6 63 18 164/103 98 DX & DISP Disposition: Inpatient Departure Impression: Primary Impression: CHARANJIT (acute kidney injury) Additional Impression: Hyponatremia Condition: Stable Referrals: REMY FISHER MD (PCP) JEAN SALINAS MD Apr 05, 2024 13:56
[2024-04-05] MEDS: 0.9%NACL 1000ML 1,000 ML IV SCH (14:57)
[2024-04-05] MEDS ORDERED: LIDOCAINE HCL 2% VISCOUS 30 ML, MAG/ALUM/SIMETH 30ML 30 ML, DICYCLOMINE HCL 20 MG PO PRN (15:00)
[2024-04-05] MEDS ORDERED: LACTULOSE 20 GM/30 ML UDCUP PO PRN (15:00)
[2024-04-05] MEDS ORDERED: doCUSate SODIUM 100 MG CAP PO PRN (15:00)
[2024-04-05] MEDS ORDERED: BENZOCAINE/MENTH/CETYLPYRD CL 1 EACH LOZENGE MM PRN (15:00)
[2024-04-05] MEDS ORDERED: polyETHYLene GLYCol 3350 17 GM POWD.PACK PO PRN (15:00)
[2024-04-05] MEDS ORDERED: ARTIFICAL TEARS SOL 15 ML OP PRN (15:00)
[2024-04-05] MEDS ORDERED: ondanSETRON 4MG INJ IV PRN (15:00)
[2024-04-05] MEDS: CEFTRIAXONE 2GM VIAL IVPB SCH (15:16)
[2024-04-05] MEDS: acetaMINOPHEN 325 MG TAB PO PRN (15:16)
--- NOTE | 2024-04-05 16:43 | HMCIMG ---
CT HEAD/BRAIN W/O CONTRAST HISTORY: Dizziness, altered mental status COMPARISON: None TECHNIQUE: Multiple sequential axial images of the head were obtained from the base of the skull through vertex. Patient was not given contrast through intravenous route. FINDINGS: The ventricles and extraventricular CSF spaces are dilated consistent with cerebral atrophy. Nonspecific white matter changes seen. Right occipital lobe infarct is seen. There is no midline shift, mass effect or herniation. No acute intracranial bleed is seen. Visualized portion of the paranasal sinuses are grossly within normal limits. IMPRESSION: 1. No acute intracranial bleed is seen. Right occipital lobe infarct. CT was performed with one or more following dose reduction techniques: automated exposure control, adjustment of the mA and kv according to patient's size, or use of a iterative reconstruction technique.
--- NOTE | 2024-04-05 17:00 | HMCIMG ---
CHEST 1VW HISTORY: Shortness of breath COMPARISON: None FINDINGS: A frontal projection of the chest was obtained. Prominent interstitial markings are seen with possible superimposed infiltrates. The heart is enlarged. Degenerative changes are seen. No evidence of aortic calcification is seen. IMPRESSION: 1. Prominent interstitial markings are seen with possible superimposed infiltrates.
[2024-04-05] MEDS: hydrALAZine 25MG TABLET PO PRN (21:13)
[2024-04-05 22:00] VITALS: BP 151/61; PULSE 62; RESP 18; TEMP 97.7; O2SAT 96
--- NOTE | 2024-04-05 22:05 | NUR ---
Pranay negron in [facility] - 04/05/24 at 2205 by TEVIN UA CUP PROVIDED
--- NOTE | 2024-04-05 22:05 | HP ---
[facility] HISTORY & PHYSICAL Date Patient Seen: Apr 05, 2024 Time of Visit: 22:05 Supervising Physician: Dr. Sanderson Primary Care Physician: REMY FISHER MD (PCP) Outpatient Specialists: Inpatient Consults: PROBLEM LIST: Acute complicated cystitis, POA Hyponatremia, POA Acute kidney injury on CKD, POA Anemia of chronic disease, POA Electrolyte derangement (hyponatremia, hypochloremia, hypocalcemia) Hyperglycemia, POA Hypoalbuminemia, POA HPI: Ms. Pugh is a 78-year-old female with a history of lupus, hypertension and hypothyroidism who presented to [facility] [place] [place] ED for evaluation of general body weakness. Patient reported that she felt like passing out. Patient has been on Lasix which has been a new medications started a week ago. The patient otherwise had no concerns. Chest x-ray: 1. Prominent interstitial markings are seen with possible superimposed infiltrates. CT of the head: 1. No acute intracranial bleed is seen. Right occipital lobe infarct. ED provider request patient be admitted with the diagnosis of CHARANJIT and hyponatremia. I went to assess the patient at bedside in 327. The patient's breathing was even, unlabored, patient was comfortable, in no distress. I informed her of labs, diagnostics, and plan of care. Patient verbalized understanding and is in agreement with the plan. Plan and assessment are listed below. PAST MEDICAL HX: see above PAST SURGICAL HX: noncontributory SOCIAL HISTORY: No tobacco, ETOH, or illicit drug use Coded Allergies: No Known Drug Allergies (Unverified Allergy, 02/09/12) REVIEW OF SYSTEMS: 12 point ROS reviewed with patient. Pertinent positives mentioned above. Otherwise negative. PHYSICAL EXAM: GENERAL: alert, weak, awake oriented x 3 HEENT: EOMI, Sclera non icteric, moist mucosa NECK: Supple, no JVD, trachea midline LUNGS: Clear breath sounds bilaterally. No wheezes HEART: Regular rate and rhythm. Normal S1 and S2, without murmurs ABD: Abdomen soft, nontender. Bowel sounds present EXT: No clubbing cyanosis or edema NEURO: Alert and oriented to person, follows commands Vital Signs (last 8hr) Date Time Temp Pulse Resp B/P (MAP) Pulse Ox O2 Delivery O2 Flow Rate FiO2 04/05/24 21:00 98.2 70 16 163/84 98 Room Air* 0 04/05/24 19:40 98.6 71 18 157/81 98 Room Air* 0 21 04/05/24 17:07 98.6 60 18 131/80 100 Room Air* 0 21 LABS: Hematology Labs: Test 04/05/24 12:18 Range/Units White Blood Count 5.1 4.8-10.8 K/uL Red Blood Count 3.65 L 4.00-5.50 MIL/uL Hemoglobin 10.8 L 12.0-16.0 g/dL Hematocrit 32.2 L 36-48 % Mean Corpuscular Volume 88.2 79-99 fL Mean Corpuscular Hemoglobin 29.6 27.0-33.0 pg Mean Corpuscular Hemoglobin Concent 33.5 32.0-36.0 g/dL Red Cell Distribution Width 13.4 11.0-15.5 % Platelet Count 293 130-400 K/uL Mean Platelet Volume 10.5 7.5-10.5 fL Immature Granulocyte % (Auto) 0.4 0-1 % Neutrophils (%) (Auto) 59.9 40.0-77.0 % Lymphocytes (%) (Auto) 24.3 21.0-51.0 % Monocytes (%) (Auto) 14.0 H 3.0-13.0 % Eosinophils (%) (Auto) 0.8 0.0-8.0 % Basophils (%) (Auto) 0.6 0.0-5.0 % Neutrophils # (Auto) 3.0 1.8-7.7 K/uL Lymphocytes # (Auto) 1.2 1.0-4.8 K/uL Monocytes # (Auto) 0.7 0.1-1.0 K/uL Eosinophils # (Auto) 0.04 0.00-0.70 K/uL Basophils # (Auto) 0.03 0.00-0.20 K/uL Absolute Immature Granulocyte (auto 0.02 0-1 K/uL Nucleated Red Blood Cells 0.0 0.0-0.19 % Chemistry Labs: Test 04/05/24 12:18 Range/Units Sodium Level 125 L 136-145 mmol/L Potassium Level 4.0 3.5-5.1 mmol/L Chloride Level 90 *L 101-111 mmol/L Carbon Dioxide Level 29 21-32 mmol/L Blood Urea Nitrogen 25 H 7-18 mg/dL Creatinine 1.3 H 0.5-1.0 mg/dL Glomerular Filtration Rate Calc 42 >90 mL/min Random Glucose 126 H 70-105 mg/dL Lactic Acid Level 1.9 0.8-2.5 mmol/L Total Calcium 8.0 L 8.5-10.1 mg/dL Total Bilirubin 0.6 0.2-1.0 mg/dL Direct Bilirubin 0.2 0.0-0.3 mg/dL Aspartate Amino Transf (AST/SGOT) 53 H 10-37 U/L Alanine Aminotransferase (ALT/SGPT) 62 12-78 U/L Alkaline Phosphatase 107 50-136 U/L Troponin I High Sensitivity 36 4-50 ng/L Total Protein 7.8 6.0-8.3 g/dL Albumin 3.2 L 3.5-5.0 g/dL Procalcitonin < 0.05 L 0.05-0.5 ng/mL Thyroid Stimulating Hormone (TSH) 1.04 0.36-3.74 uIU/mL Coagulation Labs: Test 04/05/24 12:18 Range/Units Prothrombin Time 11.6 9.6-11.6 SEC Prothromb Time International Ratio 1.04 0.85-1.15 Activated Partial Thromboplast Time 29.9 26.3-35.5 SEC DIAGNOSTICS / RADIOLOGY RESULTS: [ ] PLAN Admit patient to medical floor with telemetry monitoring. Continue antibiotic therapy: Rocephin2 g IV. Continue NS at a75 mL an hour. Continue home medications [id number] mcg p.o. daily. Continue home medication valsartan 160 mg p.o. b.i.d.. Hold home medication Lasix 40 mg IV b.i.d.. NEURO: Minimize central acting medications as possible. Maintain fall precautions, adequate lighting during the day PULMONARY: Supplemental 02 as needed. Maintain aspiration precautions at all times CARDIOVASCULAR: Follow hemodynamics. Vital signs per facility protocol GI & NUTRITION: Continue with nutritional support. Continue stool softeners and laxatives as needed. KIDNEYS & ELECTROLYTES: Strict monitoring of intake, output and overall fluid balance. Avoid nephrotoxic medications to the extent possible. Medications to be dosed according to renal function. Monitor electrolytes and replace as needed ENDOCRINE: Maintain blood glucose between 100-180 at all times. Hypoglycemia protocol in place INFECTIOUS DISEASE: Trend temperature, WBC and procalcitonin level Follow cultures, deescalate antibiotics as soon as possible. Panculture if new onset fever ONCOLOGY/HEMATOLOGY/COAGULATION: Monitor for s/s of bleeding Monitor hemoglobin, coagulation studies as needed SKIN: Pressure ulcer prevention per facility protocol Specialty mattress ORTHO/REHAB: Continue PT/OT Prophylaxis: Continue GI and DVT prophylaxis Code Status: Full Resuscitation Disposition: TBD Other: Total patient care time exceeds 35 minutes excluding all procedures. SULEIMAN DURBINP Apr 05, 2024 22:05
[2024-04-06] VITALS (12 sets, daily range): BP systolic 131–157; BP diastolic 52–80; PULSE 59–114; RESP 16–20; TEMP 97.7–98.7; O2SAT 97–99
[2024-04-06] MEDS: acetaMINOPHEN 325 MG TAB PO PRN (00:59)
[2024-04-06] MEDS: levoTHYROxine 88 MCG TABLET PO SCH (05:52)
[2024-04-06 06:48] LABS: ALBUMIN 2.9 g/dL (3.5-5.0); BILIRUBIN,TOTAL 0.4 mg/dL (0.2-1.0); CREATININE 1.1 mg/dL (0.5-1.0); POTASSIUM 4.2 mmol/L (3.5-5.1); TOTAL PROTEIN, SERUM 7.3 g/dL (6.0-8.3)
[2024-04-06] MEDS ORDERED: LoSARTan 100 MG TABLET PO SCH (09:00)
[2024-04-06] MEDS: FLU VACC TS2024-25(6MOS UP)/PF 45 MCG/0.5 ML ML IM ONE (09:00)
[2024-04-06] MEDS: ASPIRIN 325MG TAB PO SCH (09:31)
--- NOTE | 2024-04-06 11:21 | HMCIMG ---
MR BRAIN WO CON HISTORY: Stroke COMPARISON: None TECHNIQUE: MRI of the brain was performed utilizing multiple pulse sequences in axial, coronal and sagittal planes. Patient was not given contrast through intravenous route. FINDINGS: The ventricles and extraventricular CSF spaces are dilated consistent with cerebral atrophy. Nonspecific white matter changes are seen. There is no midline shift, mass effect or herniation. No subacute hemorrhage is seen. 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 No MR evidence of acute infarct is seen in the diffusion weighted images. Cerebellar tonsils are in normal position. No evidence of mucoperiosteal thickening is seen of the visualized paranasal sinuses. No MR evidence of a mass lesion is seen in this noncontrast study. IMPRESSION: 1. No MR evidence of acute infarct is seen in the diffusion weighted images. Old right occipital lobe infarct. Atrophy with white matter changes.
--- NOTE | 2024-04-06 11:37 | HMCIMG ---
CT ABDOMEN/PELVIS W/O CONTRAST HISTORY: Elevated lipase COMPARISON: None TECHNIQUE: Multiple sequential axial images of the abdomen and pelvis were obtained from the dome of the diaphragm through symphysis pubis. Patient was not given contrast through intravenous route. Oral contrast was not given. FINDINGS: No pleural effusion is seen bilaterally. Left lower lung pulmonary infiltrates are seen. Degenerative changes of the thoracolumbar spine are present. The heart is not enlarged. Coronary arterial calcifications are seen. Grade 1 anterolisthesis are seen at L4-5 and L5-S1 levels with disc space narrowing. Liver measures 12 cm. The liver, spleen, adrenal glands and pancreas are unremarkable. There is no evidence of hydronephrosis bilaterally. No evidence of renal stone is seen. Fecal material is seen in the colon. There are normal size retroperitoneal and mesenteric lymph nodes. No ascites is seen. No CT evidence of acute appendicitis is seen. Pelvic sidewalls are symmetric bilaterally. Bladder is poorly distended. IMPRESSION: 1. Left lower lung pulmonary infiltrates. CT was performed with one or more following dose reduction techniques: automated exposure control, adjustment of the mA and kv according to patient's size, or use of a iterative reconstruction technique.
--- NOTE | 2024-04-06 12:06 | PN ---
[facility] PROGRESS NOTE Date Patient Seen: Apr 06, 2024 Time of Visit: 12:06 Supervising Physician: Dr. Jcarlos Lr Primary Care Physician: REMY FISHER MD (PCP) Outpatient Specialists: Inpatient Consults: NA PROBLEM LIST: Community acquired pneumonia Suspect COPD exacerbation, POA Acute complicated cystitis,POA Acute hyponatremia, POA Acute kidney injury on CKD, POA Minimally elevated lipase/amylase Anemia of chronic disease, POA Electrolyte derangement (hyponatremia, hypochloremia, hypocalcemia) Hyperglycemia Hypoalbuminemia Second hand smoke exposure from History of old right occipital lobe, no neuro deficits Hypertension SLE INTERVAL HISTORY: Rounded with nurse MARLEE Edouard Patient assessed at bedside. AAOX3. Currently on room air. Complains of cough with phlegm production. States she was exposed to her who was a smoker since they got . CT abdomen/pelvis showed left lower lobe infiltrates, CT chest without contrast ordered. MRI brain was done due to dizziness was negative for acute stroke but showed old right occipital infarct, no neuro deficits. Daughter stated patient was started on oral Lasix about a week ago and since then she has been feeling very tired. Will continue to hold Lasix and give gentle IV hydration. IV ABX changed to IV Cefepime, azithromycin to cover for possible pseudomonas. Sputum culture ordered. Denies any chest pain, abdominal pain, nausea or vomiting. Overall prognosis is guarded. REVIEW OF SYSTEMS: 12 point ROS reviewed with patient. Pertinent positives mentioned above. Otherwise negative. PHYSICAL EXAM: GENERAL: alert, weak, awake oriented x 3 HEENT: EOMI, Sclera non icteric, moist mucosa NECK: Supple, no JVD, trachea midline LUNGS: Diminished breath sounds bilaterally. No wheezes HEART: Regular rate and rhythm. Normal S1 and S2, without murmurs ABD: Abdomen soft, nontender. Bowel sounds present EXT: No clubbing cyanosis or edema NEURO: AAOX3, follows commands Vital Signs (last 8hr) Date Time Temp Pulse Resp B/P (MAP) Pulse Ox O2 Delivery O2 Flow Rate FiO2 04/06/24 08:39 114 16 144/79 95 04/06/24 08:38 97 16 153/80 94 04/06/24 08:00 97.9 74 16 150/52 96 LABS: Hematology Labs: Test 04/05/24 12:18 Range/Units White Blood Count 5.1 4.8-10.8 K/uL Red Blood Count 3.65 L 4.00-5.50 MIL/uL Hemoglobin 10.8 L 12.0-16.0 g/dL Hematocrit 32.2 L 36-48 % Mean Corpuscular Volume 88.2 79-99 fL Mean Corpuscular Hemoglobin 29.6 27.0-33.0 pg Mean Corpuscular Hemoglobin Concent 33.5 32.0-36.0 g/dL Red Cell Distribution Width 13.4 11.0-15.5 % Platelet Count 293 130-400 K/uL Mean Platelet Volume 10.5 7.5-10.5 fL Immature Granulocyte % (Auto) 0.4 0-1 % Neutrophils (%) (Auto) 59.9 40.0-77.0 % Lymphocytes (%) (Auto) 24.3 21.0-51.0 % Monocytes (%) (Auto) 14.0 H 3.0-13.0 % Eosinophils (%) (Auto) 0.8 0.0-8.0 % Basophils (%) (Auto) 0.6 0.0-5.0 % Neutrophils # (Auto) 3.0 1.8-7.7 K/uL Lymphocytes # (Auto) 1.2 1.0-4.8 K/uL Monocytes # (Auto) 0.7 0.1-1.0 K/uL Eosinophils # (Auto) 0.04 0.00-0.70 K/uL Basophils # (Auto) 0.03 0.00-0.20 K/uL Absolute Immature Granulocyte (auto 0.02 0-1 K/uL Nucleated Red Blood Cells 0.0 0.0-0.19 % Chemistry Labs: Test 04/06/24 06:04 04/05/24 12:18 Range/Units Sodium Level 130 L 136-145 mmol/L Potassium Level 4.2 3.5-5.1 mmol/L Chloride Level 95 L 101-111 mmol/L Carbon Dioxide Level 26 21-32 mmol/L Blood Urea Nitrogen 22 H 7-18 mg/dL Creatinine 1.1 H 0.5-1.0 mg/dL Glomerular Filtration Rate Calc 51 >90 mL/min Random Glucose 88 70-105 mg/dL Hemoglobin A1c 6.0 4.0-6.0 % Estimated Average Glucose (eAG) 126 70-126 mg/dL Total Calcium 8.0 L 8.5-10.1 mg/dL Total Bilirubin 0.4 # 0.2-1.0 mg/dL Aspartate Amino Transf (AST/SGOT) 50 H 10-37 U/L Alanine Aminotransferase (ALT/SGPT) 50 12-78 U/L Alkaline Phosphatase 100 50-136 U/L Total Protein 7.3 6.0-8.3 g/dL Albumin 2.9 L 3.5-5.0 g/dL Amylase Level 150 #H 25-115 U/L Lipase 124 H 16-77 U/L Lactic Acid Level 1.9 0.8-2.5 mmol/L Direct Bilirubin 0.2 0.0-0.3 mg/dL Troponin I High Sensitivity 36 4-50 ng/L Procalcitonin < 0.05 L 0.05-0.5 ng/mL Thyroid Stimulating Hormone (TSH) 1.04 0.36-3.74 uIU/mL Coagulation Labs: Test 04/05/24 12:18 Range/Units Prothrombin Time 11.6 9.6-11.6 SEC Prothromb Time International Ratio 1.04 0.85-1.15 Activated Partial Thromboplast Time 29.9 26.3-35.5 SEC DIAGNOSTICS / RADIOLOGY RESULTS: PROCEDURE: ABD PEL WO - CT ABDOMEN/PELVIS W/O CONTRAST CT ABDOMEN/PELVIS W/O CONTRAST HISTORY: Elevated lipase COMPARISON: None TECHNIQUE: Multiple sequential axial images of the abdomen and pelvis were obtained from the dome of the diaphragm through symphysis pubis. Patient was not given contrast through intravenous route. Oral contrast was not given. FINDINGS: No pleural effusion is seen bilaterally. Left lower lung pulmonary infiltrates are seen. Degenerative changes of the thoracolumbar spine are present. The heart is not enlarged. Coronary arterial calcifications are seen. Grade 1 anterolisthesis are seen at L4-5 and L5-S1 levels with disc space narrowing. Liver measures 12 cm. The liver, spleen, adrenal glands and pancreas are unremarkable. There is no evidence of hydronephrosis bilaterally. No evidence of renal stone is seen. Fecal material is seen in the colon. There are normal size retroperitoneal and mesenteric lymph nodes. No ascites is seen. No CT evidence of acute appendicitis is seen. Pelvic sidewalls are symmetric bilaterally. Bladder is poorly distended. IMPRESSION: 1. Left lower lung pulmonary infiltrates. PLAN Change IV ABX to cefepime and azithromycin CT chest without contrast ordered Start on DuoNeb and Pulmicort CPT and IS, sputum culture Continue NS at a75 mL an hour. Continue home medications [id number] mcg p.o. daily. Continue home medication valsartan 160 mg p.o. b.i.d.. Hold home medication Lasix 40 mg IV b.i.d.. NEURO: Minimize central acting medications as possible. Maintain fall precautions, adequate lighting during the day PULMONARY: Supplemental 02 as needed. Maintain aspiration precautions at all times CARDIOVASCULAR: Follow hemodynamics. Vital signs per facility protocol GI & NUTRITION: Continue with nutritional support. Continue stool softeners and laxatives as needed. KIDNEYS & ELECTROLYTES: Strict monitoring of intake, output and overall fluid balance. Avoid nephrotoxic medications to the extent possible. Medications to be dosed according to renal function. Monitor electrolytes and replace as needed ENDOCRINE: Maintain blood glucose between 100-180 at all times. Hypoglycemia protocol in place INFECTIOUS DISEASE: Trend temperature, WBC and procalcitonin level Follow cultures, deescalate antibiotics as soon as possible. Panculture if new onset fever ONCOLOGY/HEMATOLOGY/COAGULATION: Monitor for s/s of bleeding Monitor hemoglobin, coagulation studies as needed SKIN: Pressure ulcer prevention per facility protocol Specialty mattress ORTHO/REHAB: Continue PT/OT Prophylaxis: Continue GI and DVT prophylaxis Code Status: Full Resuscitation Disposition: TBD Other: Total patient care time exceeds 35 minutes excluding all procedures. MARY HOPE Apr 06, 2024 12:06
[2024-04-06] MEDS: Solu-medROL 40MG VIAL IVP SCH (12:24)
[2024-04-06] MEDS: ceFEPime HCL 1 GM VIAL IVPB SCH (12:24)
[2024-04-06] MEDS: HEParin 5,000 UNIT VIAL SQ SCH (12:35)
[2024-04-06] MEDS: AZITHROMYCIN 500MG+NS 250ML 250 ML IVPB SCH (13:30)
--- NOTE | 2024-04-06 18:31 | HMCIMG ---
CT CHEST W/O CONTRAST HISTORY: Pneumonia COMPARISON: 04/01/2024 TECHNIQUE: Multiple sequential axial images of the chest were obtained from the thoracic inlet through upper abdomen. Patient was not given contrast through intravenous route. FINDINGS: Left lower lobe pulmonary infiltrates are seen. There are interstitial fibrosis. Esophageal dilatation is seen. No pleural effusion or pericardial effusion is seen. There is no evidence of pneumothorax. There are normal size mediastinal and hilar lymph nodes. The heart is not enlarged. Degenerative changes of the thoracolumbar spine are present. There is no evidence of adrenal nodule. Coronary arterial calcifications are seen. IMPRESSION: 1. Left lower lobe pulmonary infiltrates are seen. There are interstitial fibrosis. Esophageal dilatation is seen. CT was performed with one or more following dose reduction techniques: automated exposure control, adjustment of the mA and kv according to patient's size, or use of a iterative reconstruction technique.
[2024-04-06] MEDS: BUDESONIDE 0.5 MG/2 ML INH IH SCH (19:00)
[2024-04-06] MEDS: IpraTROPium/alBUTERol SULFATE 3 ML SOLUTION IH SCH (19:00)
[2024-04-06] MEDS: hydrOXYzine 25 MG TABLET PO PRN (20:45)
[2024-04-06] MEDS: atorVAStatin 40 MG TABLET PO SCH (20:45)
[2024-04-07] VITALS (12 sets, daily range): BP systolic 121–156; BP diastolic 52–98; PULSE 65–86; RESP 18–19; TEMP 97.6–98.3; O2SAT 95–98
[2024-04-07 05:11] LABS: HEMATOCRIT 27.9 % (36-48); MEAN CORPUSCULAR HEMOGLOBIN 29.8 pg (27.0-33.0); MEAN CORPUSCULAR HGB CONC 32.6 g/dL (32.0-36.0); MEAN CORPUSCULAR VOLUME 91.5 fL (79-99); PLATELET COUNT (AUTO) 249 K/uL (130-400); RED BLOOD CELL COUNT(AUTO) 3.05 MIL/uL (4.00-5.50); WHITE BLOOD COUNT (AUTO) 2.8 K/uL (4.8-10.8)
[2024-04-07 05:28] LABS: ALBUMIN 2.4 g/dL (3.5-5.0); BILIRUBIN,TOTAL 0.2 mg/dL (0.2-1.0); MAGNESIUM 1.2 mg/dL (1.80-2.40); POTASSIUM 3.9 mmol/L (3.5-5.1); TOTAL PROTEIN, SERUM 6.4 g/dL (6.0-8.3)
[2024-04-07 05:32] LABS: HEMOGLOBIN A1C 6.2 % (4.0-6.0)
[2024-04-07 05:33] LABS: AMYLASE 121 U/L (25-115)
[2024-04-07 06:45] LABS: BAND NEUTROPHILS % (MANUAL) 3 % (0-2); LYMPHOCYTES % (MANUAL) 19 % (22-44); MAN.DIFF COMMENT-IMPRESSION MANUAL DIFFERENTIAL; MONOCYTES % (MANUAL) 1 % (2-9); PLATELET MORPHOLOGY COMMENT ADEQUATE; SEGMENTED NEUTROPHILS % 77 % (40-70); TOTAL CELLS COUNTED 100
[2024-04-07] MEDS: MAGNESIUM 2GM PREMIX 50ML 50 ML IV PRN (08:49)
[2024-04-07] MEDS: guaiFENesin SUGAR-FREE 100 MG/5 ML UDCUP PO PRN (08:57)
[2024-04-07] MEDS: FLU VACC TS2024-25(6MOS UP)/PF 45 MCG/0.5 ML ML IM ONE (09:00)
--- NOTE | 2024-04-07 13:43 | PN ---
[facility] PROGRESS NOTE Date Patient Seen: Apr 07, 2024 Time of Visit: 13:43 Supervising Physician: Dr. Arturo Pugh Primary Care Physician: REMY FISHER MD (PCP) Outpatient Specialists: Inpatient Consults: NA PROBLEM LIST: Community acquired pneumonia Suspect COPD exacerbation, POA Acute complicated cystitis,POA Acute hyponatremia, POA Acute kidney injury on CKD, POA Minimally elevated lipase/amylase, POA, resolved Anemia of chronic disease, POA Electrolyte derangement (hyponatremia, hypochloremia, hypocalcemia) Hyperglycemia Hypoalbuminemia Second hand smoke exposure from History of old right occipital lobe, no neuro deficits Hypertension SLE INTERVAL HISTORY: Patient assessed at bedside. AAOX3. Currently on room air. States she feels better but continues with frequent coughing. Sodium improved to 130. Denies any chest pain, abdominal pain, nausea or vomiting. No family at bedside, attempted to call daughter Rayna but no answer. Anticipate discharge in the next 24-48 hours if stable. REVIEW OF SYSTEMS: 12 point ROS reviewed with patient. Pertinent positives mentioned above. Otherwise negative. PHYSICAL EXAM: GENERAL: alert, weak, awake oriented x 3 HEENT: EOMI, Sclera non icteric, moist mucosa NECK: Supple, no JVD, trachea midline LUNGS: Diminished breath sounds bilaterally. No wheezes HEART: Regular rate and rhythm. Normal S1 and S2, without murmurs ABD: Abdomen soft, nontender. Bowel sounds present EXT: No clubbing cyanosis or edema NEURO: AAOX3, follows commands Vital Signs (last 8hr) Date Time Temp Pulse Resp B/P (MAP) Pulse Ox O2 Delivery O2 Flow Rate FiO2 04/07/24 12:00 97.5 86 18 142/55 94 Room Air 21 04/07/24 11:15 68 19 04/07/24 08:49 96 Room Air* 0 21 04/07/24 08:00 97.7 80 18 138/55 96 Room Air 21 LABS: Hematology Labs: Test 04/07/24 04:54 Range/Units White Blood Count 2.8 L 4.8-10.8 K/uL Red Blood Count 3.05 L 4.00-5.50 MIL/uL Hemoglobin 9.1 L 12.0-16.0 g/dL Hematocrit 27.9 L 36-48 % Mean Corpuscular Volume 91.5 79-99 fL Mean Corpuscular Hemoglobin 29.8 27.0-33.0 pg Mean Corpuscular Hemoglobin Concent 32.6 32.0-36.0 g/dL Red Cell Distribution Width 14.0 11.0-15.5 % Platelet Count 249 130-400 K/uL Mean Platelet Volume 10.2 7.5-10.5 fL Segmented Neutrophils % 77 H 40-70 % Band Neutrophils % 3 H 0-2 % Lymphocytes % (Manual) 19 L 22-44 % Monocytes % (Manual) 1 L 2-9 % Nucleated Red Blood Cells 0.0 0.0-0.19 % Differential Comment MANUAL DIFFERENTIAL White Cell Morphology Comment Platelet Morphology Comment ADEQUATE Red Blood Cell Morphology ANISO 1+ Chemistry Labs: Test 04/07/24 04:54 Range/Units Sodium Level 130 L 136-145 mmol/L Potassium Level 3.9 3.5-5.1 mmol/L Chloride Level 98 L 101-111 mmol/L Carbon Dioxide Level 25 21-32 mmol/L Blood Urea Nitrogen 21 H 7-18 mg/dL Creatinine 1.0 0.5-1.0 mg/dL Glomerular Filtration Rate Calc 57 >90 mL/min Random Glucose 193 #H 70-105 mg/dL Hemoglobin A1c 6.2 H 4.0-6.0 % Estimated Average Glucose (eAG) 131 H 70-126 mg/dL Total Calcium 7.6 L 8.5-10.1 mg/dL Magnesium Level 1.20 L 1.80-2.40 mg/dL Total Bilirubin 0.2 # 0.2-1.0 mg/dL Aspartate Amino Transf (AST/SGOT) 35 10-37 U/L Alanine Aminotransferase (ALT/SGPT) 45 12-78 U/L Alkaline Phosphatase 82 50-136 U/L Total Protein 6.4 6.0-8.3 g/dL Albumin 2.4 L 3.5-5.0 g/dL Amylase Level 121 H 25-115 U/L Lipase 94 H 16-77 U/L DIAGNOSTICS / RADIOLOGY RESULTS: NA PLAN Continue IV ABX to cefepime and azithromycin CT chest without contrast as resulted, LLL infiltrates Continue on DuoNeb and Pulmicort CPT and IS, sputum culture Continue NS at a75 mL an hour. Continue home medications [id number] mcg p.o. daily. Continue home medication valsartan 160 mg p.o. b.i.d.. Hold home medication Lasix 40 mg IV b.i.d.. NEURO: Minimize central acting medications as possible. Maintain fall precautions, adequate lighting during the day PULMONARY: Supplemental 02 as needed. Maintain aspiration precautions at all times CARDIOVASCULAR: Follow hemodynamics. Vital signs per facility protocol GI & NUTRITION: Continue with nutritional support. Continue stool softeners and laxatives as needed. KIDNEYS & ELECTROLYTES: Strict monitoring of intake, output and overall fluid balance. Avoid nephrotoxic medications to the extent possible. Medications to be dosed according to renal function. Monitor electrolytes and replace as needed ENDOCRINE: Maintain blood glucose between 100-180 at all times. Hypoglycemia protocol in place INFECTIOUS DISEASE: Trend temperature, WBC and procalcitonin level Follow cultures, deescalate antibiotics as soon as possible. Panculture if new onset fever ONCOLOGY/HEMATOLOGY/COAGULATION: Monitor for s/s of bleeding Monitor hemoglobin, coagulation studies as needed SKIN: Pressure ulcer prevention per facility protocol Specialty mattress ORTHO/REHAB: Continue PT/OT Prophylaxis: Continue GI and DVT prophylaxis Code Status: Full Resuscitation Disposition: Home once medically cleared MARY PUGH Apr 07, 2024 13:43
[2024-04-08] VITALS (8 sets, daily range): BP systolic 129–132; BP diastolic 44–52; PULSE 68–87; RESP 16–18; TEMP 97.8–98.1; O2SAT 92–98
[2024-04-08 06:15] LABS: HEMATOCRIT 27.1 % (36-48); MEAN CORPUSCULAR HGB CONC 32.1 g/dL (32.0-36.0); MEAN CORPUSCULAR VOLUME 93.4 fL (79-99); RED BLOOD CELL COUNT(AUTO) 2.9 MIL/uL (4.00-5.50); RED CELL DISTRIBUTION WIDTH 14.6 % (11.0-15.5); WHITE BLOOD COUNT (AUTO) 10.5 K/uL (4.8-10.8)
[2024-04-08 06:47] LABS: ALBUMIN 2.4 g/dL (3.5-5.0); BILIRUBIN,TOTAL 0.3 mg/dL (0.2-1.0); POTASSIUM 4.4 mmol/L (3.5-5.1); TOTAL PROTEIN, SERUM 6.1 g/dL (6.0-8.3)
--- NOTE | 2024-04-08 09:47 | HMCIMG ---
PORTABLE CHEST RADIOGRAPH INDICATION: pneumonia COMPARISON: 04/06/2024 CTA chest FINDINGS: Heart remains enlarged. The pulmonary vascularity and katherine appear normal. Unchanged left lower lung opacities. No evidence for consolidation. No significant pleural effusion noted. No pneumothorax detected. IMPRESSION: Residual left lower lung opacities. Continued follow-up is recommended in order to ensure complete resolution. Cardiomegaly without pulmonary vascular congestion.
[2024-04-08] MEDS ORDERED: PRED20TA3 PO (12:28)
[2024-04-08] MEDS ORDERED: BUDE10.22 IH (12:28)
[2024-04-08] MEDS ORDERED: LEVO750T68 PO (12:28)
[2024-04-08] MEDS ORDERED: ALBU90AE3 IH (12:28)
--- NOTE | 2024-04-08 14:04 | NUR ---
DISCHARGE PIV DC'D DISCHARGE INSTRUCTIONS GIVEN TO PATIENT PATIENT IS AWARE REGARDING FOLLOW UP APPOINTMENTS ALL QUESTIONS ANSWERED PRIOR TO DISCHARGE
--- NOTE | 2024-04-08 14:09 | DS ---
[facility] DISCHARGE SUMMARY Date Patient Seen: Apr 08, 2024 Time of Visit: 14:09 Supervising Physician: Dr. 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 Pugh is a 78-year-old female with a history of lupus, hypertension and hypothyroidism who presented to [facility] ED for evaluation of general body weakness. Patient reported that she felt like passing out. Patient has been on Lasix which has been a new medications started a week ago. The patient otherwise had no concerns.Chest x-ray: 1. Prominent interstitial markings are seen with possible superimposed infiltrates. CT of the head: 1. No acute intracranial bleed is seen. Right occipital lobe infarct.ED provider request patient be admitted with the diagnosis of CHARANJIT and hyponatremia.I went to assess the patient at bedside in 327. The patient's breathing was even, unlabored, patient was comfortable, in no distress. I informed her of labs, diagnostics, and plan of care. Patient verbalized understanding and is in agreement with the plan. Plan and assessment are listed below. HOSPITAL COURSE: Patient was admitted due to generalized weakness and was found to have hyponatremia and pneumonia. She did also have some CHARANJIT secondary to oral Lasix issues recently prescribed the emergency room. Patient did receive IV fluids admission with creatinine improving as well as GFR. She was started on IV antibiotics. Suspected chronic obstructive pulmonary disease exacerbation due to exposure of secondhand smoke from her . She denies smoking. Today, patient is awake, alert, oriented x3. Currently on room air. States that cough has subsided and she has no phlegm. Denies any chest pain, abdominal pain, nausea or vomiting. SpO2 levels greater than 95% on room air. Discharge instructions given to patient, follow-up with PCP in 2-3 days, follow-up with healthcare liaison for evaluation of chronic obstructive pulmonary disease in one week, complete oral antibiotics, steroids, inhalers that were sent to pharmacy. Stable for discharge home. Advised not to take anymore Lasix, verbalized understanding New Medications: Albuterol Sulfate (Proair Digihaler) 90 Mcg Aer.pw.bas 90 MCG IH Q6H PRN for SHORTNESS OF BREATH/WHEEZING, #30 UNIT Budesonide/Formoterol Fumarate (Symbicort 80-4.5 Mcg Inhaler) 80 Mcg-4.5 Mcg/Actuation Inhr 2 PUFF IH BID for 30 Days, #30 GM 0 Refills Levofloxacin (Levaquin 750Mg Tabs) 750 Mg Tablet 1 TAB PO DAILY for 10 Days, #10 TAB 0 Refills Prednisone (Prednisone) 20 Mg Tablet 40 MG PO DAILY, #5 TAB Continued Medications: Aspirin (Aspirin) 81 Mg Tab.chew 81 MG PO DAILY, TAB.CHEW Clonidine HCl (Clonidine HCl) 0.1 Mg Tablet 0.1 MG PO AD PRN for IF SBP GREATER THAN 160, TAB Ergocalciferol (Vitamin D2) (Vitamin D2) 1,250 Mcg (00152 Unit) Capsule 1250 MCG PO QWEEK, CAP Levothyroxine Sodium (Levothyroxine) 88 Mcg Capsule 88 MCG PO DAILY, CAP Valsartan (Valsartan) 160 Mg Tablet 160 MG PO BID, TAB Discontinued Medications: Furosemide (Lasix 40Mg Tab) 40 Mg Tablet 1 TAB PO BID for 7 Days, #14 TAB 0 Refills PHYSICAL EXAM: GENERAL: alert, weak, awake oriented x 3 HEENT: EOMI, Sclera non icteric, moist mucosa NECK: Supple, no JVD, trachea midline LUNGS: Clear breath sounds bilaterally. No wheezes HEART: Regular rate and rhythm. Normal S1 and S2, without murmurs ABD: Abdomen soft, nontender. Bowel sounds present EXT: No clubbing cyanosis or edema NEURO: AAOX3, follows commands FOLLOW-UP: Follow-up with PCP in 2-3 days Follow-up with healthcare liaison for evaluation of chronic obstructive pulmonary disease RECOMMENDATIONS: See Discharge Instructions This case was seen and discussed with my supervising physician. More than 30 minutes spent on discharge process, including evaluation of the patient, discussion with nursing staff, medication reconciliation and follow-up appointments MARY PUGH Apr 08, 2024 14:09
== END 2024-04-08 14:50 | disposition home or self-care (01) | DRG 682 ==
LOC: EDH 11:36 → UNDOADMOB 14:33 → EDHIP 14:33 → OBSVTOIN 14:33 → EDHIP 21:46 → 3DH 21:46 → INTOOBSV 04-06 11:45 → OBSVTOIN 04-06 11:45
PROVIDERS: ADMIT Internal Medicine Critical Care Medicine; ATTEND Internal Medicine Critical Care Medicine
PROC: 3E0234Z Introduction of Serum, Toxoid and Vaccine into Muscle, Percutaneous Approach (ICD-10-PCS; 2024-04-06)
PROC: 3E02340 Introduction of Influenza Vaccine into Muscle, Percutaneous Approach (ICD-10-PCS; principal; 2024-04-07)
DX: N17.9 Acute kidney failure, unspecified (principal); J18.9 Pneumonia, unspecified organism; E87.1 Hypo-osmolality and hyponatremia; N30.00 Acute cystitis without hematuria; J44.1 Chronic obstructive pulmonary disease with (acute) exacerbation; N18.9 Chronic kidney disease, unspecified; E83.51 Hypocalcemia; D63.1 Anemia in chronic kidney disease; I12.9 Hypertensive chronic kidney disease with stage 1 through stage 4 chronic kidney disease, or unspecified chronic kidney disease; E88.09 Other disorders of plasma-protein metabolism, not elsewhere classified; E87.8 Other disorders of electrolyte and fluid balance, not elsewhere classified; T50.1X5A Adverse effect of loop [high-ceiling] diuretics, initial encounter; M32.9 Systemic lupus erythematosus, unspecified; E03.9 Hypothyroidism, unspecified; Z77.22 Contact with and (suspected) exposure to environmental tobacco smoke (acute) (chronic); Z79.51 Long term (current) use of inhaled steroids; Z79.82 Long term (current) use of aspirin; Z86.73 Personal history of transient ischemic attack (TIA), and cerebral infarction without residual deficits; Y92.89 Other specified places as the place of occurrence of the external cause; Z23 Encounter for immunization
CPT/HCPCS: 36415; 70450; 70551; 71045; 71250; 74176; 80048; 80053; 80076; 81001; 82150; 83036; 83605; 83690; 83735; 84145; 84443; 84484; 85025; 85027; 85610; 85730; 87071; 87205; 87635; 87804; 90732; 93005; 94640; 94664; 94760; G0378; J0456; J0692; J0696; J1644; J2919; J3475; Q2035; Q2038

== ENCOUNTER → 2025-01-09 | Outpatient (CLI) | payer MEDICARE ==
[~2025-01-09] MED LIST changes: +ALBU90AE3 IH; -ATOR10 PO; +BUDE10.22 IH; -FURO40TA7 PO; +LEVO750T68 PO; -LEVO88CA4 PO; +LEVO88CA5 PO; +PRED20TA3 PO; -TRAM-543 PO
--- NOTE | 2025-01-09 14:00 | NUR ---
MBSS COMPLETED (OUTPATIENT). No aspirations; deep non-transient penetration during the swallow with thin liquids via tsp; mildly thick liquids via cup sip; pudding textures; and mixed textures with no cough response. RECOMMENDATIONS: pureed solids, moderately thick liquids, and pills crushed with applesauce as tolerated. COMPENSATORY STRATEGIES: 1. sit upright during oral intake 2. small bites/sips 3. slow oral intake 4. NO MIXED TEXTURES 5. extra dry swallows 6. NO STRAWS 7. NO MELTING TEXTURES (jellos, pudding, ice cream) NOTE: Pt and daughter at bedside report patient with Hx of lupus. DIAGNOSTIC FINDINGS: Pt presented with mild oral and mild to moderate pharyngeal dysphagia characterized by decreased oral motor strength; decreased tongue base retraction; delayed pharyngeal response trigger; and decreased hyo-laryngeal elevation/excursion evidenced by premature spillage to valleculae with occasional spillover to pyriform sinuses; residue on body and base of tongue, palate/roof of mouth, valleculae, pyriform sinuses and posterior pharyngeal wall cleared with extra dry swallows; resulting in deep non-transient penetration during the swallow with thin liquids via tsp; mildly thick liquids via cup sip; pudding textures; and mixed textures with no cough response; no aspirations observed. PROCESS SUPERVISOR reviewed results and recommendations with patient and family present at time of eval. PROCESS SUPERVISOR educated patient on risks and consequences of aspiration. Pt provided with a can of thickener and demonstrated how to reach moderately thicken liquids. Speech therapy warranted to address oropharyngeal dysphagia as outpatient. All questions answered. Addendum: 01/10/[address] [facility] LEMUS Amended: Links added.
--- NOTE | 2025-01-18 10:09 | HMCIMG ---
MODIFIED BARIUM SWALLOW W CINE REASON: Gastro-esophageal reflux disease without esophagitis;Dysphagia, unspecified FINDINGS: Fluoroscopic assistance was provided to the speech pathologist while performing examination. For findings and dietary recommendations, refer to speech pathologist's report. FLUORO TIME: 3.5 minutes IMPRESSION: Modified barium swallow as described.
== END | disposition home or self-care (01) ==
LOC: RAH 13:17
PROVIDERS: ATTEND Family Medicine
DX: K21.9 Gastro-esophageal reflux disease without esophagitis (principal); R13.10 Dysphagia, unspecified
CPT/HCPCS: 74230; 92611